=== PATIENT | male | born 1945 | race Two or more races ===

== ENCOUNTER 2020-06-10 11:15 | Outpatient (CLI) | payer OTHER | END 2020-06-10 11:20 | disposition home or self-care (01) | LOC: RAD 11:15 | PROVIDERS: ATTEND Physical Medicine & Rehabilitation Sports Medicine | DX: M54.2 Cervicalgia (principal); M25.511 Pain in right shoulder; M25.512 Pain in left shoulder ==

== ENCOUNTER 2020-06-29 12:57 | Outpatient (CLI) | payer OTHER | END 2020-06-29 13:05 | disposition home or self-care (01) | LOC: RAD 12:57 | PROVIDERS: ATTEND Physical Medicine & Rehabilitation Sports Medicine | DX: M16.0 Bilateral primary osteoarthritis of hip (principal) ==

== ENCOUNTER 2020-07-01 12:41 | Outpatient (CLI) | payer OTHER | END 2020-07-01 12:49 | disposition home or self-care (01) | LOC: SONOGRAMA 12:41 → MAMO-SONO 13:15 | PROVIDERS: ATTEND Physical Medicine & Rehabilitation Sports Medicine | DX: M75.111 Incomplete rotator cuff tear or rupture of right shoulder, not specified as traumatic (principal); M75.112 Incomplete rotator cuff tear or rupture of left shoulder, not specified as traumatic ==

== ENCOUNTER 2025-10-08 10:33 | Outpatient (CLI) | payer OTHER | END 2025-10-08 10:39 | disposition home or self-care (01) | LOC: RAD 10:33 | PROVIDERS: ATTEND Specialist | DX: M54.50 Low back pain, unspecified (principal); R05.9 Cough, unspecified ==